=== PATIENT | female | born 1975 | race Caucasian/White ===

== ENCOUNTER 2016-04-16 21:13 | Emergency (ER) | payer OTHER ==
[~2016-04-16] VITALS: Ht 167.6 cm; Wt 83.9 kg
[2016-04-16 21:26] VITALS: BP 146/90
--- NOTE | 2016-04-16 21:45 | Emergency Room Report ---
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 She present with chief complaint of right eye redness. This occurred about an hour ago. No trauma. Does not wear contact lenses. No other complaint. Mild injection and discharge. No pain. no visual problem. Allergies: Coded Allergies: No Known Allergies (Unverified , 04/16/16) Patient History Past Medical History: none Past Surgical History: none Pertinent Family History: none Social History: Denies: smoking Last Menstrual Period: 04/02/16 Now: No Immunizations: other Reviewed Nursing Documentation: PMH: Agreed, PSxH: Agreed Nursing Documentation-PMH Past Medical History: No Stated History Review of Systems Eye: Reports: discharge ENT: Denies: ear pain, nose congestion, throat swelling Respiratory: Denies: cough, shortness of breath Cardiovascular: Denies: chest pain, palpitations Gastrointestinal: Denies: abdominal pain, diarrhea, nausea, vomiting Musculoskeletal: Denies: back pain, joint pain Skin: Denies: rash Neurological: Denies: headache, numbness Endocrine: Denies: increased thirst, increased urine Hematologic/Lymphatic: Denies: easy bruising All Other Systems: negative except mentioned in HPI Physical Exam Vital Signs Date Time Temp Pulse Resp B/P Pulse Ox O2 Delivery O2 Flow Rate FiO2 04/16/16 21:23 98.4 82 16 146/90 98 Room Air vitals normal Sp02 EP Interpretation: reviewed, normal General Appearance: well appearing, no apparent distress, alert Head: normocephalic, atraumatic Eyes: right eye other - Conjunctiva injected. No foreign body., bilateral eye EOMI, bilateral eye PERRL ENT: hearing grossly normal, normal pharynx Neck: full range of motion, supple, no meningismus Respiratory: chest non-tender, lungs clear, normal breath sounds Cardiovascular #1: regular rate, rhythm, no murmur Gastrointestinal: normal bowel sounds, non tender, no mass, no organomegaly, no bruit, non-distended Musculoskeletal: back normal, gait/station normal, normal range of motion Psychiatric: mood/affect normal Skin: warm/dry Medical Decision Making Diagnostic Impression: Primary Impression: Conjunctivitis, acute Qualified Codes: H10.31 - Unspecified acute conjunctivitis, right eye ER Course Patient with conjunctivitis of the right eye. Most likely beginning a viral. When put on antibiotic drops. No evidence of foreign body. No evidence of visual daily problem. We'll discharge home with reassurance. Last Vital Signs Date Time Temp Pulse Resp B/P Pulse Ox O2 Delivery O2 Flow Rate FiO2 04/16/16 21:23 98.4 82 16 146/90 98 Room Air Status: unchanged Disposition: HOME, SELF-CARE Condition: Stable Scripts Polymyxin/Trimethoprim (Polytrim Eye Drops) 10 Ml Drops 2 DROP OPHTHALM THREE TIMES A DAY, #1 EA Instill in affected eye for 7 days Prov: LISETH BUSTILLO M.D. 04/16/16 Patient Instructions: Viral Conjunctivitis Additional Instructions: Followup with your Dr. in 7 days. Treat both eyes. Return if worse. LISETH BUSTILLO M.D. Apr 16, 2016 21:45
[2016-04-16] MEDS ORDERED: POLYTRIM OP SOL10 ML OPHTHALM (21:48)
[2016-04-16 21:55] VITALS: BP 146/90
== END 2016-04-16 21:55 | disposition home or self-care (01) ==
LOC: EMR 21:38
DX: H10.31 Unspecified acute conjunctivitis, right eye (principal)
CPT/HCPCS: 99282